=== PATIENT | male | born 1975 ===

== ENCOUNTER 2016-09-12 06:26 | Day surgery (SDC) | payer OTHER ==
[2016-08-29 09:09] VITALS: BMI 25.8
[2016-09-12] MEDS ORDERED: Bupivacaine HCl 0.25% PF (10 ml) Inj ONE (07:20)
[2016-09-12] MEDS ORDERED: ceFAZolin IV 1 gm in Dextrose 50 ML IVPB ONE (07:20)
[2016-09-12] MEDS ORDERED: Midazolam 2 MG/2 ML VIAL ONE (07:47)
[2016-09-12] MEDS ORDERED: Propofol 10 mg/ml Inj (20 ML) ONE (07:47)
[2016-09-12] MEDS ORDERED: Lactated Ringer's 1,000 ML IV ONE (08:20)
[2016-09-12] MEDS ORDERED: Neostigmine Methylsulfate 3mg/3ml Syringe IV ONE (09:18)
--- NOTE | 2016-09-12 09:30 | PCM.SURG1 ---
Surgeon's Initial Post Op Note - Surgeon's Notes Surgeon: Dr. Edmond Catcher Helper: Dr. Lockwood PGY-2 Type of Anesthesia: General Endo, Local Pre-Operative Diagnosis: Internal hemorrhoids Operative Findings: Internal hemorrhoids Post-Operative Diagnosis: Internal hemorrhoids Operation Performed: Hemorrhoidectomy Specimen/Specimens Removed: internal hemorrhoid Estimated Blood Loss: EBL {In ML}: 20 Blood Products Given: N/A Drains Used: No Drains Post-Op Condition: Good Date of Surgery/Procedure: 09/12/16 Time of Surgery/Procedure: 08:00
[2016-09-12] MEDS ORDERED: Oxycodone/Acetaminophen 5/325 mg Tab PO PRN (09:32)
[2016-09-12] MEDS: HYDROmorphone 0.5 mg/0.5 ml ISec IVP PRN ×3 (09:39→10:50)
[2016-09-12] MEDS ORDERED: Lactated Ringer's 500 ML IV ONE (11:30)
[2016-09-12 11:50] VITALS: BP 118/73; PULSE 78; RESP 18; TEMP 96.5; O2SAT 98
--- NOTE | 2016-09-13 16:36 | OP ---
PROCEDURE DATE: 09/12/2016 PREOPERATIVE DIAGNOSIS: Grade III hemorrhoid. POSTOPERATIVE DIAGNOSIS: Grade III hemorrhoid. PROCEDURE DONE: 1. Hemorrhoidectomy. 2. Examination under anesthesia. SURGEON: Eric Edmond MD SOFTWARE QA SYSTEM SPECIALIST: Asha Lockwood , PGY-2 resident. ANESTHESIA: General endotracheal tube anesthesia. ESTIMATED BLOOD LOSS: Around 10 mL. DRAINS: None. PATHOLOGY: The hemorrhoid was sent for the pathology. COMPLICATIONS: None. INTRAOPERATIVE FINDINGS: The patient had a right lateral large grade III hemorrhoid. INTRAOPERATIVE STEPS: This 41-year-old male who was diagnosed with grade III large hemorrhoid and patient was consented for the hemorrhoidectomy, brought to the OR, placed supine on the operating table. After induction of anesthesia, the patient was placed in the prone jackknife position and the butt cheek was taped apart and an elliptical incision was made after doing examination under anesthesia. The second part of the operation is examination under anesthesia. After examination under anesthesia the mucocutaneous junction incision was made and the hemorrhoid was from underlying internal sphincter and the dissection was carried down to find the pedicle and the pedicle was ligated with 0 Vicryl suture and wound was closed with 2-0 Vicryl continuous suture and Surgicel packing was placed. A dry sterile dressing was applied. The patient tolerated the procedure well. Count of instruments and gauze was correct. There was no apparent complication. The patient was extubated in the OR and sent to the postanesthesia care unit in stable condition. Eric Edmond MD cc: [id number] TT: 09/13/2016 16:35:48 an MTDD
== END 2016-09-12 12:38 | disposition home or self-care (01) ==
LOC: C.SDS 06:26
PROVIDERS: ATTEND Surgery Surgical Critical Care
DX: K64.8 Other hemorrhoids (principal)
CPT/HCPCS: 46255; 88304; J0690; J1170; J1885; J2001; J2250; J2405; J2704; J2710; J3010; J7120

== ENCOUNTER 2018-03-27 13:39 | Emergency (ER) | payer OTHER ==
[2018-03-27 13:39] VITALS: BMI 25.8
[2018-03-27 14:59] VITALS: O2SAT 100
[2018-03-27] MEDS ORDERED: Sodium Chloride 0.9% 1,000 ML IV ONE (15:16)
[2018-03-27] MEDS ORDERED: Sodium Chloride 0.9% 1,000 ML ONE (15:34)
[2018-03-27 15:36] LABS: BASO % 0.2 % (0.0-2.0); EOS # 0.1 K/uL (0.0-0.7); EOS % 1.9 % (0.0-4.0); HEMOGLOBIN 14.8 g/dL (12.0-18.0); LYMPH # 1.7 K/uL (1.0-4.3); LYMPH % 25.7 % (20.0-40.0); MEAN CELL VOLUME 92.2 fL (80.0-94.0); MEAN CORPUSCULAR HEMOGLOBIN 31.4 pg (27.0-31.0); MEAN CORPUSCULAR HGB CONC 34.1 g/dL (33.0-37.0); MEAN PLATELET VOLUME 8.2 fL (7.2-11.7); MONO # 0.5 K/uL (0.0-0.8); MONO % 7.3 % (0.0-10.0); NEUT # 4.3 K/uL (1.8-7.0); NEUT % 64.9 % (50.0-75.0); NRBC % 0.1 % (0.0-2.0); RBC 4.69 Mil/uL (4.40-5.90); WHITE BLOOD COUNT 6.6 K/uL (4.8-10.8)
[2018-03-27 15:39] LABS: URINE BILIRUBIN NEGATIVE (NEGATIVE); URINE BLOOD NEGATIVE (NEGATIVE); URINE CLARITY Clear (Clear); URINE COLOR Yellow (YELLOW); URINE GLUCOSE (UA) NORMAL (Normal); URINE LEUKOCYTE ESTERASE NEG Leu/uL (Negative); URINE PROTEIN NEGATIVE (NEGATIVE); URINE UROBILINOGEN NORMAL mg/dL (0.2-1.0)
[2018-03-27 15:44] LABS: INR 1.1; PROTHROMBIN TIME 11.7 SECONDS (9.7-12.2)
[2018-03-27 16:03] LABS: ALB/GLOB RATIO 1.4 (1.0-2.1); ALBUMIN 4.3 g/dL (3.5-5.0); ALT/SGPT 33 U/L (21-72); AST/SGOT 24 U/L (17-59); BLOOD UREA NITROGEN 17 mg/dL (9-20); CALCIUM 9.3 mg/dl (8.6-10.4); GFR NON-AFRICAN AMERICAN > 60
--- NOTE | 2018-03-27 16:37 | US ---
Date of service: 03/27/2018 HISTORY: left testicular pain, r/o torsion TECHNIQUE: Realtime sonography through the scrotum with color and doppler flow. COMPARISON: None Available. FINDINGS: RIGHT TESTICLE: Measures 5.3 x 2.1 x 2.8 cm. Homogeneous echotexture. Normal blood flow. No mass. RIGHT EPIDIDYMIS: Normal size, vascularity and morphology. LEFT TESTICLE: Measures 5.0 x 2.0 x 2.9 cm. Normal echotexture and flow. LEFT EPIDIDYMIS: Normal size, morphology and vascularity. Incidental epididymal cyst, 7 mm. HYDROCELE: None. VARICOCELE: None. OTHER FINDINGS: None. IMPRESSION: Incidental 7 mm left epididymal cyst. No evidence of testicular torsion. No evidence of epididymo-orchitis.
--- NOTE | 2018-03-27 16:39 | C.PDOC ---
History Of Present Illness 42-year-old male, presents to the emergency department with complaints of left testicular pain since waking up two days ago. pain is constant and worse with ambulation. He denies abdominal pain, hematuria, dysuria, fever, or injuries. Time Seen by Provider: 03/27/18 15:15 Chief Complaint (Nursing): Male Genitourinary History Per: Patient History/Exam Limitations: no limitations Current Symptoms Are (Timing): Still Present Past Medical History Reviewed: Historical Data, Nursing Documentation, Vital Signs Vital Signs: Last Vital Signs Temp 97.5 F L 03/27/18 14:55 Pulse 60 03/27/18 14:55 Resp 19 03/27/18 14:55 BP 134/84 03/27/18 14:55 Pulse Ox 100 03/27/18 14:55 - Medical History PMH: Kidney Stones - Social History Hx Alcohol Use: Yes Hx Substance Use: No - Immunization History Hx Tetanus Toxoid Vaccination: (unk) Hx Influenza Vaccination: Yes (2018) Hx Pneumococcal Vaccination: (unk) Review Of Systems Constitutional: Negative for: Fever, Chills Gastrointestinal: Negative for: Nausea, Vomiting Genitourinary: Positive for: Scrotal Pain. Negative for: Dysuria, Frequency, Incontinence, Hematuria, Penile Discharge, Rash, Penile Pain Physical Exam - Physical Exam Appears: Well, Non-toxic, No Acute Distress Skin: Normal Color, Warm, Dry, No Rash Head: Atraumatic, Normacephalic Eye(s): bilateral: Normal Inspection, PERRL, EOMI Nose: Normal Oral Mucosa: Moist Lips: Normal Appearing Neck: Normal ROM Cardiovascular: Rhythm Regular, No Murmur Respiratory: Normal Breath Sounds, No Accessory Muscle Use Gastrointestinal/Abdominal: Normal Exam, Soft, No Tenderness Male Genital: Testicular Tenderness (left-testicle, inferior aspect), No Testicular Swelling (No erythema), No Circumcised Extremity: Normal ROM, No Deformity Neurological/Psych: Oriented x3, Normal Speech ED Course And Treatment - Laboratory Results Result Diagrams: 03/27/18 15:32 03/27/18 15:32 O2 Sat by Pulse Oximetry: 100 Pulse Ox Interpretation: Normal (RA) Progress Note: Bloodwork, UA and Ultrasound ordered and reviewed. Patient treated with IVFs. Disposition Counseled Patient/Family Regarding: Studies Performed, Diagnosis, Need For Followup, Rx Given - Disposition Referrals: Lawrence Garber MD [Staff Provider] - Jaquan Forte MD [Resident] - Disposition: HOME/ ROUTINE Disposition Time: 17:15 Condition: STABLE Additional Instructions: FOLLOW UP WITH UROLOGIST WITHIN 1 WEEK USE MEDICATION NEEDED FOR PAIN RETURN TO ER IF SYMPTOMS WORSEN Prescriptions: Naproxen 375 mg PO BID PRN #20 tablet PRN Reason: pain Forms: [facility] ([place]), General Discharge Instructions Print Language: [place] - Clinical Impression Clinical Impression: Epididymal cyst - Scribe Statement The provider has reviewed the documentation as recorded by the Scribe (Denver Harmon) Provider Attestation: All medical record entries made by the Scribe were at my direction and personally dictated by me. I have reviewed the chart and agree that the record accurately reflects my personal performance of the history, physical exam, medical decision making, and the department course for this patient. I have also personally directed, reviewed, and agree with the discharge instructions and disposition.
[2018-03-27 17:37] VITALS: BP 143/87; PULSE 59; RESP 18; TEMP 98.2
== END 2018-03-27 17:35 | disposition home or self-care (01) ==
LOC: C.ER 13:39
DX: N50.3 Cyst of epididymis (principal)
CPT/HCPCS: 76870; 80053; 81001; 85025; 85610; 85730; 87086; 96360; 99284; J7030